=== PATIENT | female | born 1995 | race Two or more races ===

== ENCOUNTER 2023-03-29 16:28 | Emergency (ER) | payer SELFPAY ==
[2023-03-29 16:48] VITALS: BP 113/74; PULSE 137; RESP 14; TEMP 37.1; O2SAT 96; BMI 36.6
[2023-03-29 17:21] LABS: Basophils % 0.1 %; Hematocrit 50.2 % (37.0-47.0); Lymphocytes # 2.4 10^3/uL (0.8-4.8); Mean Corpuscular HGB Conc 33.9 g/dL (30.0-36.0); Mean Corpuscular Volume 85.5 fl (81-99); Mean Platelet Volume 10.2 fL (7.4-10.4); Monocytes % 7.5 %; Neutrophils # 10.39 10^3/uL (1.8-7.7); Neutrophils % 74.7 %; Nucleated Red Blood Cells % 0 %; Platelet Count 350 10^3/cmm (130-400); Red Blood Count 5.87 10^6/uL (4.1-5.3); Red Cell Distribution Width 12.5 % (12.1-15.1); White Blood Count 13.9 10^3/uL (4.0-10.0)
[2023-03-29 17:46] LABS: HCG, Serum Qual Negative (Negative)
[2023-03-29 17:51] LABS: Alanine Aminotransferase 15 U/L (0-33); Albumin Level 4.8 g/dL (3.5-5.2); Alkaline Phosphatase 73 U/L (35-105); Anion Gap 22.6 (5-19); Aspartate Amino Transferase 20 U/L (0-32); Blood Urea Nitrogen 11 mg/dL (6-20); Calcium 10.5 mg/dL (8.5-10.5); Carbon Dioxide 18 mmol/L (22-29); Chloride 99 mmol/L (98-107); Globulin 3.5 g/dL (1.3-4.6); Glomerular Filtration Rate 74.6 mL/min (90-130); Glucose 111 mg/dL (65-115); Lipase 25 U/L (13-60); Osmolality Calculated 282 mOsm/kg (285-295); Potassium 3.6 mmol/L (3.5-5.1); Sodium 136 mmol/L (136-145); Total Bilirubin 0.7 mg/dL (0.15-1.2); Total Protein 8.3 g/dL (6.6-8.7)
--- NOTE | 2023-03-29 17:55 | USR_ITS ---
PROCEDURE INFORMATION: Exam: US Abdomen, Limited; Right Upper Quadrant Exam date and time: 03/29/2023 6:13 PM Age: 28 years old Clinical indication: Abdominal pain; Other: Chronic intermittent ruq pain x 4 years; Patient HX: Normal tbili = 0.7, normal ast = 20, normal alt = 15, normal alkphos = 73, normal lipase = 25, negative hcg TECHNIQUE: Imaging protocol: Real time ultrasound of the abdomen with image documentation. Limited exam focused on the right upper quadrant. COMPARISON: No relevant prior studies available. FINDINGS: Liver: Unremarkable. Gallbladder: No gallstones. No gallbladder wall thickening or pericholecystic fluid. Negative sonographic Taylor's sign, as per the performing picking tech. Biliary ducts: Normal. No stones. No dilation. Pancreas: Unremarkable as visualized. Right kidney: No mass. No definite stones. No hydronephrosis. US/US gall bladder [id number] IMPRESSION: No acute sonographic findings.
--- NOTE | 2023-03-29 17:56 | W.ED.ABDPA2 ---
HPI - Abdominal Pain General: Chief Complaint: Abdominal Pain Stated Complaint: NVD Time Seen by Provider: 03/29/23 17:48 Source: patient Mode of arrival: ambulatory Limitations: no limitations History of Present Illness: 28-year-old female states over the last 4 years she has had abdominal issues she states she has had chronic pain along with vomiting. She is not no history of any surgeries denies any fever states that she has had an episode over the last 4 days with severe vomiting its been uncontrolled with diffuse abdominal cramping she rates a 5 out of 10. She denies any worsening improving factors not been able to tolerate anything p.o. Associated Symptoms: Reports nausea and vomiting; Denies chills, diarrhea, dysuria and fever(s) Review of Systems Const: Denies: fever(s), chills, body aches or change in appetite ENMT: Denies: throat pain or dental pain Card: Denies: chest pain Resp: Denies: dyspnea GI: Reports: abdominal pain, nausea and vomiting; Denies: diarrhea : Denies: dysuria Musc: Denies: neck pain or back pain Skin/Breast: Denies: rash Neuro: Denies: headache(s) Physical Exam Const: COMMON NORMALS: no acute distress, patient oriented x3 and healthy appearing HENMT: COMMON NORMALS: normocephalic and atraumatic HEAD & SCALP: normocephalic and atraumatic Eye: COMMON NORMALS: Equal, round and reactive pupils present and EOMs intact bilaterally PUPIL: Yes Equal, round and reactive pupils present Neck/C-Spine: COMMON NORMALS: full ROM and supple Chest: COMMONS NORMALS: normal inspection of the chest and normal palpation of entire chest wall Resp: COMMON NORMALS: normal respiratory effort, No retractions, No use of accessory muscles and clear to auscultation bilaterally AUSCULTATION: clear to auscultation bilaterally Cardio: COMMON NORMALS: regular rate, regular rhythm and No murmurs present (Cardio) RATE: regular rate RHYTHM: regular rhythm GI: COMMON NORMALS: Normal to inspection, nondistended, normoactive bowel sounds present, Soft to palpation, non-tender and no masses PALPATION: Yes Soft to palpation Extremity: COMMON NORMALS: normal to inspection and full ROM Neuro: COMMON NORMALS: patient oriented x3, moves all extremities and no focal motor deficits Psych: COMMON NORMALS: mental status grossly normal, Normal thought process present and cooperative THOUGHT PROCESS: Normal thought process present Skin: COMMON NORMALS: no rashes or lesions noted and no wounds GENERAL SKIN EXAM: no rashes or lesions noted Course Vital Signs: Vital signs: Vital Signs Temperature 98.8 F 03/29/23 16:48 Pulse Rate 81 03/29/23 19:06 Respiratory Rate 14 03/29/23 19:06 Blood Pressure 120/87 03/29/23 19:06 Pulse Oximetry 98 03/29/23 19:06 Oxygen Delivery Me thod Room Air 03/29/23 16:48 MDM - Abdominal Pain Medical Decision Making Patient presents here with abdominal pain along with vomiting has been chronic in nature blood work ultrasound here are normal she feels much improved after Reglan states Zofran works best for home and she did recently ran out we will prescribe her Zofran we will get her follow-up with surgery she is return if worsening. Medical Records I reviewed the patient's medical records. Lab Data I reviewed the patient's lab results. 03/29/23 16:58 03/29/23 16:58 Labs/Radiology: Radiology Impressions Gallbladder Ultrasound 03/29/23 17:55 IMPRESSION: No acute sonographic findings. Laboratory Results WBC 13.9 10^3/uL (4.0-10.0) H 03/29/23 16:58 RBC 5.87 10^6/uL (4.1-5.3) H 03/29/23 16:58 Hgb 17.0 g/dL (11.5-15.3) H 03/29/23 16:58 Hct 50.2 % (37.0-47.0) H 03/29/23 16:58 MCV 85.5 fl (81-99) 03/29/23 16:58 MCH 29.0 pg (28.0-34.0) 03/29/23 16:58 MCHC 33.9 g/dL (30.0-36.0) 03/29/23 16:58 RDW 12.5 % (12.1-15.1) 03/29/23 16:58 Plt Count 350 10^3/cmm (130-400) 03/29/23 16:58 MPV 10.2 fL (7.4-10.4) 03/29/23 16:58 Neut % (Auto) 74.7 % 03/29/23 16:58 Lymph % (Auto) 17.0 % 03/29/23 16:58 [place] % (Auto) 7.5 % 03/29/23 16:58 Eos % (Auto) 0.0 % 03/29/23 16:58 Baso % (Auto) 0.1 % 03/29/23 16:58 Neut # (Auto) 10.39 10^3/uL (1.8-7.7) H 03/29/23 16:58 Lymph # (Auto) 2.4 10^3/uL (0.8-4.8) 03/29/23 16:58 [place] # (Auto) 1.0 10^3/uL (0.2-0.9) H 03/29/23 16:58 Eos # (Auto) 0.0 10^3/uL (0.0-0.8) 03/29/23 16:58 Baso # (Auto) 0.0 10^3/uL (0.0-0.1) 03/29/23 16:58 Nucleated RBC % (auto) 0 % 03/29/23 16:58 Nucleated RBCs # 0.0 /100WBC 03/29/23 16:58 Sodium 136 mmol/L (136-145) 03/29/23 16:58 Potassium 3.6 mmol/L (3.5-5.1) 03/29/23 16:58 Chloride 99 mmol/L (98-107) 03/29/23 16:58 Carbon Dioxide 18 mmol/L (22-29) L 03/29/23 16:58 Anion Gap 22.6 (5-19) H 03/29/23 16:58 BUN 11 mg/dL (6-20) 03/29/23 16:58 Creatinine 0.9 mg/dL (0.5-0.9) 03/29/23 16:58 GFR Calculation 74.6 mL/min (90-130) L 03/29/23 16:58 Glucose 111 mg/dL (65-115) 03/29/23 16:58 Calculated Osmolality 282 mOsm/kg (285-295) L 03/29/23 16:58 Calcium 10.5 mg/dL (8.5-10.5) 03/29/23 16:58 Total Bilirubin 0.7 mg/dL (0.15-1.2) 03/29/23 16:58 AST 20 U/L (0-32) 03/29/23 16:58 ALT 15 U/L (0-33) 03/29/23 16:58 Alkaline Phosphatase 73 U/L (35-105) 03/29/23 16:58 Total Protein 8.3 g/dL (6.6-8.7) 03/29/23 16:58 Albumin 4.8 g/dL (3.5-5.2) 03/29/23 16:58 Globulin 3.5 g/dL (1.3-4.6) 03/29/23 16:58 Lipase 25 U/L (13-60) 03/29/23 16:58 HCG, Qual Negative (Negative) 03/29/23 16:58 Discharge Plan Discharge Patient Disposition: Home Clinical Impression: Abdominal pain, Vomiting Condition: Stable Prescriptions: New ondansetron 4 mg tablet,disintegrating 4 mg PO Q6H PRN (Reason: nausea and vomiting) Qty: 14 0RF Discharge Orders: Discharge ED (Routine); Ordered 03/29/23 Ordered By: Paras Powell Referrals: Lm Carlos MD [Physician] - 1-3 days Discharge Diet: Advance as tolerated Discharge Activity: Resume usual activity Patient Instructions: Acute Nausea and Vomiting (ED), Abdominal Pain (ED) Coding Level of Care Code ED Pipe Smoking Machine Operator for Marissa Singleton
[2023-03-29 17:59] VITALS: RESP 20; O2SAT 99
[2023-03-29] MEDS: sodium chloride 0.9% 1,000 ML 999 ML IV (17:59)
[2023-03-29] MEDS: diphenhydrAMINE 50 mg/mL SDV 1mL IVP (17:59)
[2023-03-29] MEDS: morphine 4 mg/mL SDV 1 mL IVP (17:59)
[2023-03-29] MEDS: metoclopramide 5 mg/mL SDV 2 mL 10 MG IVP (17:59)
[2023-03-29 18:09] VITALS: BP 139/107; PULSE 58; RESP 20; O2SAT 99
[2023-03-29 19:06] VITALS: BP 120/87; PULSE 81; RESP 14; O2SAT 98
--- NOTE | 2023-03-30 08:42 | DCPLANNER ---
Addendum entered by Lauren Benton 04/13/23 10:49: manager department received the following message from the general surgery clinic regarding follow up appointment: Unable to reach pt. Called multiple time and no returned call. Mailed pt a letter and an FA form 04/13/23. On 04/12/23 @ 11:10 Yao Cerna Wrote To General Surgery Front Off Called patient left a vm 04/12/23. On 04/08/23 @ 10:48 Yao Cerna Wrote To General Surgery Front Off called patient left a vm 04/08/23 Addendum entered by Lauren Benton 04/06/23 09:26: manager department received the following message from the general surgery clinic regarding follow up appointment: no answer 04/04 Original Note: manager department had message to schedule a follow up appointment for patient with general surgery. manager department sent patients information to the front office staff at general surgery. Patients information will be printed and reviewed. Clinic will call patient with appointment information.
== END 2023-03-29 19:07 | disposition home or self-care (01) ==
PROVIDERS: Physician Assistant; Emergency Provider Emergency Medicine
DX: R11.11 Vomiting without nausea (principal); R10.9 Unspecified abdominal pain
CPT/HCPCS: 36415; 76705; 80053; 83690; 84703; 85025; 96361; 96374; 96375; 99284; J1200; J2270; J2765; J7030

== ENCOUNTER 2023-04-24 11:36 | Emergency (ER) | payer SELFPAY ==
[2023-04-24 11:42] VITALS: BP 110/74; PULSE 116; RESP 17; TEMP 36.5; O2SAT 98; BMI 36.6
--- NOTE | 2023-04-24 12:01 | ED_ITS ---
HPI - Nausea/Vomiting/Diarrhea General: Chief complaint: Nausea/Vomiting/Diarrhea Stated complaint: n/v ,chills Time Seen by Provider: 04/24/23 11:53 Source: patient Mode of arrival: ambulatory History of Present Illness: 28-year-old female who presents emergency room with persistent nausea vomiting abdominal pain and cramping she has had this several times in the past as well last time she was here gallbladder ultrasound was negative no previous abdominal surgeries. No dysuria urgency or frequency she has had kidney stones in the past she has had some mild dysuria recently but no hematuria. No fever sweats or chills. No diarrhea in fact she states she has been constipated last few days most of the vomiting has been bilious in nature she denies any coffee- ground emesis or hematemesis. MD elicited complaint: nausea and vomiting Onset (ago): day(s) Description of vomiting: watery and bilious Associated nausea: Yes Associated abdominal pain: Yes Location of pain: Diffuse Quality: cramping Exacerbating factors: none Relieving factors: none Associated symtoms: Reports bloating, anorexia and nausea; Denies anxiety, change in vision, chest pain, cough, diaphoresis, decreased urine output, dizziness, dysuria, epistaxis, fatigue, fecal incontinence, fevers/chills, headache(s), malaise, myalgias, numbness, palpitations, rash, short of breath, syncope, tenesmus, tinnitus or weakness Review of Systems Const: Denies: fever(s), chills, fatigue, malaise or diaphoresis Eyes: Denies: change in vision ENMT: Denies: tinnitus or epistaxis Card: Denies: chest pain, palpitations or syncope Resp: Denies: dyspnea, productive cough or non-productive cough GI: Reports: abdominal pain, nausea, vomiting, constipation and bloating; Denies: hematemesis, coffee ground emesis or fecal incontinence : Denies: dysuria Skin/Breast: Denies: rash or pruritus Neuro: Denies: headache(s) or dizziness Psych: Denies: anxiety [facility] ED Female Reproductive History: Date of last menstrual period: 03/18/23 Physical Exam Const: GENERAL APPEARANCE: cooperative and comfortable ORIENTATION/CONSCIOUSNESS: Yes awake, Yes oriented to person, Yes oriented to place and Yes oriented to time HENMT: COMMON NORMALS: normocephalic, atraumatic and hearing grossly normal bilaterally HEAD & SCALP: normocephalic and atraumatic Resp: COMMON NORMALS: normal respiratory effort, No retractions, No use of accessory muscles and clear to auscultation bilaterally AUSCULTATION: clear to auscultation bilaterally Cardio: COMMON NORMALS: regular rate, regular rhythm and No murmurs present (Cardio) RATE: regular rate RHYTHM: regular rhythm GI: COMMON NORMALS: Soft to palpation and No hepatosplenomegaly present AUSCULTATION: Yes normoactive bowel sounds PALPATION: Yes Soft to palpation, No Tenderness to palpation present (GI), No Guarding due to palpation present (GI) and Yes No hepatosplenomegaly present Extremity: COMMON NORMALS: normal to inspection, capillary refill normal, no clubbing, cyanosis or edema, no calf tenderness and no pedal edema Neuro: SENSORIUM/ORIENTATION: Yes oriented to person, Yes oriented to place and Yes oriented to time Skin: COMMON NORMALS: no rashes or lesions noted GENERAL SKIN EXAM: no rashes or lesions noted Course Vital Signs: Vital signs: Vital Signs Temperature 97.7 F 04/24/23 11:42 Pulse Rate 76 04/24/23 14:12 Respiratory Rate 16 04/24/23 14:12 Blood Pressure 110/74 04/24/23 14:12 Pulse Oximetry 98 04/24/23 14:12 Oxygen Delivery Me thod Room Air 04/24/23 11:42 MDM - Nausea/Vomiting/Diarrhea Medical Decision Making After fluid Haldol and Ativan patient's symptoms have resolved. Discussion with the patient about cannabinoid hyperemesis syndrome. Suspect this is driven largely by the use of marijuana and discussed ways she can avert some of the problems including using less potent products using it with less frequency or preferably abstaining completely. Gave olanzapine and Ativan to use as needed. Clear liquid diet for the next 24 hours and advance as tolerated return if has any worsening changes symptoms Medical Records I reviewed the patient's medical records. Lab Data I reviewed the patient's lab results. 04/24/23 12:00 04/24/23 12:00 Laboratory Results WBC 5.80 10^3/uL (3.29-11.43) 04/24/23 12:00 RBC 5.61 10^6/uL (3.85-5.65) 04/24/23 12:00 Hgb 16.30 g/dL (11.27-16.99) 04/24/23 12:00 Hct 46.3 % (36-47) 04/24/23 12:00 MCV 82.5 fl (85-98) L 04/24/23 12:00 MCH 29.1 pg (27-33) 04/24/23 12:00 MCHC 35.2 g/dL (30-55) 04/24/23 12:00 RDW 12.6 % (12.1-15.1) 04/24/23 12:00 Plt Count 264 10^3/cmm (157-399) 04/24/23 12:00 MPV 10.2 fL (7.4-10.4) 04/24/23 12:00 Neut % (Auto) 63.1 % 04/24/23 12:00 Lymph % (Auto) 23.6 % 04/24/23 12:00 [place] % (Auto) 13.1 % 04/24/23 12:00 Eos % (Auto) 0.0 % 04/24/23 12:00 Baso % (Auto) 0.0 % 04/24/23 12:00 Neut # (Auto) 3.66 10^3/uL (1.8-7.7) 04/24/23 12:00 Lymph # (Auto) 1.4 10^3/uL (0.8-4.8) 04/24/23 12:00 [place] # (Auto) 0.8 10^3/uL (0.2-0.9) 04/24/23 12:00 Eos # (Auto) 0.0 10^3/uL (0.0-0.8) 04/24/23 12:00 Baso # (Auto) 0.0 10^3/uL (0.0-0.1) 04/24/23 12:00 Nucleated RBC % (auto) 0 % 04/24/23 12:00 Nucleated RBCs # 0.0 /100WBC 04/24/23 12:00 Sodium 137 mmol/L (136-145) 04/24/23 12:00 Potassium 3.3 mmol/L (3.5-5.1) L 04/24/23 12:00 Chloride 100 mmol/L (98-107) 04/24/23 12:00 Carbon Dioxide 20 mmol/L (22-29) L 04/24/23 12:00 Anion Gap 20.3 (5-19) H 04/24/23 12:00 BUN 13 mg/dL (6-20) 04/24/23 12:00 Creatinine 0.6 mg/dL (0.5-0.9) 04/24/23 12:00 GFR Calculation 119.0 mL/min (90-130) 04/24/23 12:00 Glucose 107 mg/dL (65-115) 04/24/23 12:00 Calculated Osmolality 285 mOsm/kg (285-295) 04/24/23 12:00 Calcium 9.8 mg/dL (8.5-10.5) 04/24/23 12:00 Total Bilirubin 0.3 mg/dL (0.15-1.2) 04/24/23 12:00 AST 39 U/L (0-32) H 04/24/23 12:00 ALT 29 U/L (0-33) 04/24/23 12:00 Alkaline Phosphatase 55 U/L (35-105) 04/24/23 12:00 Total Protein 7.9 g/dL (6.6-8.7) 04/24/23 12:00 Albumin 4.8 g/dL (3.5-5.2) 04/24/23 12:00 Globulin 3.1 g/dL (1.3-4.6) 04/24/23 12:00 Lipase 38 U/L (13-60) 04/24/23 12:00 HCG, Qual Negative (Negative) 04/24/23 13:23 Urine Color Straw (Yellow) 04/24/23 14:10 Urine Appearance Clear (CLEAR) 04/24/23 14:10 Urine pH 5 (5-7) 04/24/23 14:10 Ur Specific [place] 1.005 (1.005-1.030) 04/24/23 14:10 Urine Protein 1+ (Negative) H 04/24/23 14:10 Urine Glucose (UA) Norm (Normal) 04/24/23 14:10 Urine Ketones 1+ (Negative) H 04/24/23 14:10 Urine Blood Neg (Negative) 04/24/23 14:10 Urine Nitrate Negative (Negative) 04/24/23 14:10 Urine Bilirubin Neg (Negative) 04/24/23 14:10 Urine Urobilinogen Norm mg/dL (Negative) 04/24/23 14:10 Ur Leukocyte Esterase Negative (Negative) 04/24/23 14:10 Urine RBC None /hpf (0-2) 04/24/23 14:10 Urine WBC 0-4 /hpf (0-5) H 04/24/23 14:10 Ur Squamous Epith Cells 5-10 /hpf (0-5) H 04/24/23 14:10 Amorphous Sediment Not Reportable 04/24/23 14:10 Urine Bacteria Trace /hpf (NONE) 04/24/23 14:10 Discharge Plan Discharge Patient Disposition: Home Clinical Impression: Cannabinoid hyperemesis syndrome Condition: Stable Prescriptions: New olanzapine 10 mg tablet,disintegrating 10 mg PO Q6H PRN (Reason: nausea and vomitting) Qty: 15 0RF Ativan 2 mg tablet 2 mg buccal Q6H PRN (Reason: nausea and vomiting) Qty: 15 0RF Discontinued ondansetron 4 mg tablet,disintegrating 4 mg PO Q6H PRN (Reason: nausea and vomiting) Qty: 14 0RF Discharge Orders: Discharge ED (Routine); Ordered 04/24/23 Ordered By: Denver Salas Discharge Diet: Clear Liquid Discharge Activity: Increase activity as tolerated Patient Instructions: Opioid Safety, Pain Management Coding Level of Care Code ED Tattoo Identifier for Marissa Singleton
[2023-04-24 12:09] LABS: Hematocrit 46.3 % (36-47); Lymphocytes # 1.4 10^3/uL (0.8-4.8); Lymphocytes % 23.6 %; Mean Corpuscular HGB Conc 35.2 g/dL (30-55); Mean Corpuscular Hemoglobin 29.1 pg (27-33); Mean Corpuscular Volume 82.5 fl (85-98); Mean Platelet Volume 10.2 fL (7.4-10.4); Monocytes # 0.8 10^3/uL (0.2-0.9); Monocytes % 13.1 %; Neutrophils # 3.66 10^3/uL (1.8-7.7); Neutrophils % 63.1 %; Nucleated Red Blood Cells % 0 %; Platelet Count 264 10^3/cmm (157-399); Red Blood Count 5.61 10^6/uL (3.85-5.65); Red Cell Distribution Width 12.6 % (12.1-15.1)
[2023-04-24] MEDS: ondansetron 2 mg/ML SDV 2 mL 4 MG IVP (12:11)
[2023-04-24] MEDS: lactated ringers 1,000 ML 999 ML IV (12:11)
[2023-04-24] MEDS: LORazepam 2 mg/mL INJ 1 mL IVP (12:21)
[2023-04-24] MEDS: haloperidol inj 5 mg/mL INJ 1 mL 2.5 MG IVP (12:21)
[2023-04-24 12:40] LABS: Alanine Aminotransferase 29 U/L (0-33); Albumin Level 4.8 g/dL (3.5-5.2); Alkaline Phosphatase 55 U/L (35-105); Anion Gap 20.3 (5-19); Aspartate Amino Transferase 39 U/L (0-32); Blood Urea Nitrogen 13 mg/dL (6-20); Calcium 9.8 mg/dL (8.5-10.5); Carbon Dioxide 20 mmol/L (22-29); Chloride 100 mmol/L (98-107); Globulin 3.1 g/dL (1.3-4.6); Glucose 107 mg/dL (65-115); Lipase 38 U/L (13-60); Osmolality Calculated 285 mOsm/kg (285-295); Potassium 3.3 mmol/L (3.5-5.1); Sodium 137 mmol/L (136-145); Total Bilirubin 0.3 mg/dL (0.15-1.2); Total Protein 7.9 g/dL (6.6-8.7)
[2023-04-24 13:57] LABS: HCG, Serum Qual Negative (Negative)
[2023-04-24 14:12] VITALS: BP 110/74; PULSE 76; RESP 16; O2SAT 98
[2023-04-24 14:34] LABS: Specific Gravity, Urine 1.005 (1.005-1.030); Urine Appearance Clear (CLEAR); Urine Color Straw (Yellow); pH Urine 5 (5-7)
[2023-04-24 14:35] LABS: Add Urine Culture? No; Add Urine Microscopic? YES; Bacteria Urine TRACE /hpf; Bilirubin Urine Neg (Negative); Blood Urine Neg (Negative); Glucose Urine UA Norm (Normal); Ketones Urine 1+ (Negative); Leukocyte Esterase Urine Negative (Negative); Nitrate Urine Negative (Negative); Protein Urine 1+ (Negative); Urobilinogen Urine Norm (Negative); WBC Urine 0-4 /hpf (0-5)
== END 2023-04-24 15:18 | disposition home or self-care (01) ==
PROVIDERS: Emergency Provider Family Medicine
DX: R11.2 Nausea with vomiting, unspecified (principal); F12.90 Cannabis use, unspecified, uncomplicated
CPT/HCPCS: 36415; 80053; 81001; 83690; 84703; 85025; 96361; 96374; 96375; 99284; J1630; J2060; J2405; J7120

== ENCOUNTER 2023-04-27 16:50 | Emergency (ER) | payer SELFPAY ==
[2023-04-27 16:53] VITALS: BP 129/89; PULSE 70; RESP 20; TEMP 36.8; O2SAT 98; BMI 33.3
[2023-04-27] MEDS: sodium chloride 0.9% 1,000 ML 999 ML IV (17:32)
[2023-04-27] MEDS: ondansetron 2 mg/ML SDV 2 mL 4 MG IVP (17:32)
[2023-04-27 17:43] LABS: Eosinophils % 0.2 %; Hematocrit 44.8 % (36-47); Mean Corpuscular HGB Conc 33.9 g/dL (30-55); Mean Corpuscular Hemoglobin 28.7 pg (27-33); Mean Corpuscular Volume 84.5 fl (85-98); Mean Platelet Volume 10.2 fL (7.4-10.4); Monocytes # 0.6 10^3/uL (0.2-0.9); Monocytes % 11.8 %; Neutrophils # 2.44 10^3/uL (1.8-7.7); Neutrophils % 47.8 %; Nucleated Red Blood Cells % 0 %; Platelet Count 258 10^3/cmm (157-399); Red Cell Distribution Width 12.1 % (12.1-15.1)
--- NOTE | 2023-04-27 17:47 | W.ED.NAVMDI ---
HPI - Nausea/Vomiting/Diarrhea General: Chief complaint: Nausea/Vomiting/Diarrhea Stated complaint: N/V Time Seen by Provider: 04/27/23 17:06 History of Present Illness: The ER with an episode of abdominal pain and nausea vomiting. Patient states this been going on for 5 or 6 days. Patient says she was in ER about 3 days ago and the medicine they gave her work-up but knocked her out. Patient stated this been going on for several years but usually comes in waves here and there. Patient states this is exactly the same feeling as it always is there is nothing new or different about this time versus any other time. Review of Systems General: Reports: 10 or more systems reviewed and unremarkable except in HPI and below Physical Exam Const: COMMON NORMALS: no acute distress, average body habitus, patient oriented x3, no limitations, healthy appearing, alert and well nourished HENMT: COMMON NORMALS: normocephalic, atraumatic, hearing grossly normal bilaterally, external ears normal, Normal external nose present and moist oral mucous membranes HEAD & SCALP: normocephalic and atraumatic NOSE: Normal external nose present EXTERNAL EAR: Yes external ears normal Eye: COMMON NORMALS: Equal, round and reactive pupils present, EOMs intact bilaterally, conjunctivae normal and no scleral icterus CONJUNCTIVA: Yes conjunctivae normal PUPIL: Yes Equal, round and reactive pupils present Neck/C-Spine: COMMON NORMALS: full ROM, no lymphadenopathy, supple, no meningeal signs, no JVD and Thyroid normal THYROID: Thyroid normal Lymph: LYMPHATIC: no lymphadenopathy noted Chest: COMMONS NORMALS: normal inspection of the chest and normal palpation of entire chest wall Resp: COMMON NORMALS: normal respiratory effort, No retractions, No use of accessory muscles and clear to auscultation bilaterally AUSCULTATION: clear to auscultation bilaterally Cardio: COMMON NORMALS: no JVD, regular rate, regular rhythm, S1 normal heart sound present, S2 normal heart sound present, No gallops present (Cardio), No clicks present (Cardio), No murmurs present (Cardio) and No rub (Cardio) RATE: regular rate RHYTHM: regular rhythm HEART SOUNDS: S1 normal heart sound present and S2 normal heart sound present GI: COMMON NORMALS: Normal to inspection, nondistended, normoactive bowel sounds present, Soft to palpation, No hepatosplenomegaly present and no masses; negative for non-tender (Tenderness with palpation of the epigastric area.) PALPATION: Yes Soft to palpation and Yes No hepatosplenomegaly present Neuro: COMMON NORMALS: patient oriented x3 SENSORIUM/ORIENTATION: Yes alert MENINGEAL SIGNS: Yes no meningeal signs Course Vital Signs: Vital signs: Vital Signs Temperature 98.3 F 04/27/23 16:53 Pulse Rate 70 04/27/23 16:53 Respiratory Rate 20 H 04/27/23 16:53 Blood Pressure 129/89 04/27/23 16:53 Pulse Oximetry 98 04/27/23 16:53 Oxygen Delivery Me thod Room Air 04/27/23 16:53 MDM - Nausea/Vomiting/Diarrhea Medical Decision Making Presents to the ER with nausea vomiting abdominal pain. Patient was given 2.5 mg of Haldol 1 mg Ativan IV along with 1 L normal saline fluid bolus. This relieved the patient's nausea vomiting abdominal pain. Patient stated she is ready go home. Will be discharged home to follow-up with her PCP in 7 days or sooner as needed. Differential Diagnosis Unlikely traveler's diarrhea, food poisoning, gastroenteritis, clostridium difficile infection, drug-induced nausea and vomiting or dehydration Medical Records I reviewed the patient's medical records. Lab Data I reviewed the patient's lab results. 04/27/23 17:16 04/27/23 17:16 Laboratory Results WBC 5.10 10^3/uL (3.29-11.43) 04/27/23 17:16 RBC 5.30 10^6/uL (3.85-5.65) 04/27/23 17:16 Hgb 15.20 g/dL (11.27-16.99) 04/27/23 17:16 Hct 44.8 % (36-47) 04/27/23 17:16 MCV 84.5 fl (85-98) L 04/27/23 17:16 MCH 28.7 pg (27-33) 04/27/23 17:16 MCHC 33.9 g/dL (30-55) 04/27/23 17:16 RDW 12.1 % (12.1-15.1) 04/27/23 17:16 Plt Count 258 10^3/cmm (157-399) 04/27/23 17:16 MPV 10.2 fL (7.4-10.4) 04/27/23 17:16 Neut % (Auto) 47.8 % 04/27/23 17:16 Lymph % (Auto) 40.0 % 04/27/23 17:16 [place] % (Auto) 11.8 % 04/27/23 17:16 Eos % (Auto) 0.2 % 04/27/23 17:16 Baso % (Auto) 0.0 % 04/27/23 17:16 Neut # (Auto) 2.44 10^3/uL (1.8-7.7) 04/27/23 17:16 Lymph # (Auto) 2.0 10^3/uL (0.8-4.8) 04/27/23 17:16 [place] # (Auto) 0.6 10^3/uL (0.2-0.9) 04/27/23 17:16 Eos # (Auto) 0.0 10^3/uL (0.0-0.8) 04/27/23 17:16 Baso # (Auto) 0.0 10^3/uL (0.0-0.1) 04/27/23 17:16 Nucleated RBC % (auto) 0 % 04/27/23 17:16 Nucleated RBCs # 0.0 /100WBC 04/27/23 17:16 Sodium 137 mmol/L (136-145) 04/27/23 17:16 Potassium 3.1 mmol/L (3.5-5.1) L 04/27/23 17:16 Chloride 100 mmol/L (98-107) 04/27/23 17:16 Carbon Dioxide 24 mmol/L (22-29) 04/27/23 17:16 Anion Gap 16.1 (5-19) 04/27/23 17:16 BUN 8 mg/dL (6-20) 04/27/23 17:16 Creatinine 0.5 mg/dL (0.5-0.9) 04/27/23 17:16 GFR Calculation 146.9 mL/min (90-130) H 04/27/23 17:16 Glucose 111 mg/dL (65-115) 04/27/23 17:16 Calculated Osmolality 283 mOsm/kg (285-295) L 04/27/23 17:16 Calcium 9.1 mg/dL (8.5-10.5) 04/27/23 17:16 Magnesium 2.1 mg/dL (1.7-2.3) 04/27/23 17:16 Total Bilirubin 0.8 mg/dL (0.15-1.2) 04/27/23 17:16 AST 28 U/L (0-32) 04/27/23 17:16 ALT 30 U/L (0-33) 04/27/23 17:16 Alkaline Phosphatase 45 U/L (35-105) 04/27/23 17:16 Total Protein 7.2 g/dL (6.6-8.7) 04/27/23 17:16 Albumin 4.4 g/dL (3.5-5.2) 04/27/23 17:16 Globulin 2.8 g/dL (1.3-4.6) 04/27/23 17:16 Lipase 35 U/L (13-60) 04/27/23 17:16 Urine Color Yellow (Yellow) 04/27/23 18:34 Urine Appearance Clear (CLEAR) 04/27/23 18:34 Urine pH 8 (5-7) H 04/27/23 18:34 Ur Specific [place] 1.005 (1.005-1.030) 04/27/23 18:34 Urine Protein Neg (Negative) 04/27/23 18:34 Urine Glucose (UA) Norm (Normal) 04/27/23 18:34 Urine Ketones 2+ (Negative) H 04/27/23 18:34 Urine Blood 3+ (Negative) H 04/27/23 18:34 Urine Nitrate Negative (Negative) 04/27/23 18:34 Urine Bilirubin Neg (Negative) 04/27/23 18:34 Prot Sulfosalicylic Acd Negative (Negative) 04/27/23 18:34 Urine Urobilinogen 1 mg/dL (Negative) H 04/27/23 18:34 Ur Leukocyte Esterase Negative (Negative) 04/27/23 18:34 Urine RBC 0-4 /hpf (0-2) H 04/27/23 18:34 Urine WBC 0-4 /hpf (0-5) H 04/27/23 18:34 Ur Squamous Epith Cells 0-4 /hpf (0-5) H 04/27/23 18:34 Amorphous Sediment Not Reportable 04/27/23 18:34 Urine Bacteria Trace /hpf (NONE) 04/27/23 18:34 Urine Opiates Screen Negative ng/mL (Negative) 04/27/23 18:34 Ur Barbiturates Screen Negative ng/mL (Negative) 04/27/23 18:34 Ur Phencyclidine Scrn Negative ng/mL (Negative) 04/27/23 18:34 Ur Amphetamines Screen Negative ng/mL (Negative) 04/27/23 18:34 U Benzodiazepines Scrn Positive ng/mL (Negative) H 04/27/23 18:34 Urine Cocaine Screen Negative ng/mL (Negative) 04/27/23 18:34 U Marijuana (THC) Screen Positive ng/mL (Negative) H 04/27/23 18:34 Discharge Plan Discharge Patient Disposition: Home Clinical Impression: Cannabinoid hyperemesis syndrome, Acute hypokalemia Condition: Stable Prescriptions: New potassium chloride 10 mEq tablet extended release 10 meq PO DAILY Qty: 7 0RF No Action olanzapine 10 mg tablet,disintegrating 10 mg PO Q6H PRN (Reason: nausea and vomitting) Qty: 15 0RF Ativan 2 mg tablet 2 mg buccal Q6H PRN (Reason: nausea and vomiting) Qty: 15 0RF Discharge Orders: Discharge ED (Routine); Ordered 04/27/23 Ordered By: Trell Sanderson Patient Instructions: Hypokalemia (ED), Acute Nausea and Vomiting (ED) Activity Restrictions/Additional Instructions: Please follow-up with your family practice physician in the next 7 days or sooner as needed for further evaluation and treatment. Coding Level of Care Code ED Vault Service Mechanic for Marissa Singleton
[2023-04-27 18:03] LABS: Alanine Aminotransferase 30 U/L (0-33); Albumin Level 4.4 g/dL (3.5-5.2); Alkaline Phosphatase 45 U/L (35-105); Anion Gap 16.1 (5-19); Aspartate Amino Transferase 28 U/L (0-32); Blood Urea Nitrogen 8 mg/dL (6-20); Calcium 9.1 mg/dL (8.5-10.5); Carbon Dioxide 24 mmol/L (22-29); Chloride 100 mmol/L (98-107); Globulin 2.8 g/dL (1.3-4.6); Glomerular Filtration Rate 146.9 mL/min (90-130); Glucose 111 mg/dL (65-115); Lipase 35 U/L (13-60); Magnesium 2.1 mg/dL (1.7-2.3); Osmolality Calculated 283 mOsm/kg (285-295); Potassium 3.1 mmol/L (3.5-5.1); Sodium 137 mmol/L (136-145); Total Bilirubin 0.8 mg/dL (0.15-1.2); Total Protein 7.2 g/dL (6.6-8.7)
[2023-04-27] MEDS: potassium chloride ER 20 mEq Tablet 40 MEQ PO (18:25)
[2023-04-27] MEDS: haloperidol inj 5 mg/mL INJ 1 mL 2.5 MG IVP (18:26)
[2023-04-27] MEDS: LORazepam 2 mg/mL INJ 1 mL 1 MG IVP (18:27)
[2023-04-27 18:50] LABS: Add Urine Microscopic? YES; Bilirubin Urine Neg (Negative); Blood Urine 3+ (Negative); Glucose Urine UA Norm (Normal); Ketones Urine 2+ (Negative); Leukocyte Esterase Urine Negative (Negative); Nitrate Urine Negative (Negative); Protein Urine Neg (Negative); Specific Gravity, Urine 1.005 (1.005-1.030); Sulfosalicylic Acid Urine Negative (Negative); Urine Appearance Clear (CLEAR); Urine Color Yellow (Yellow); Urobilinogen Urine 1 mg/dL (Negative); pH Urine 8 (5-7)
[2023-04-27 18:52] LABS: Add Urine Culture? No; Bacteria Urine TRACE /hpf; RBC Urine 0-4 /hpf (0-2); Squamous Epithelial Cell Urine 0-4 /hpf (0-5); WBC Urine 0-4 /hpf (0-5)
[2023-04-27 18:54] LABS: Amphetamines Screen Urine Negative (Negative); Barbiturates Screen Urine Negative (Negative); Benzodiazepines Screen Urine Positive (Negative); Cocaine Screen Urine Negative (Negative); Opiate Screen Urine Negative (Negative); PCP Screen Urine Negative (Negative); THC Screen Urine Positive (Negative)
--- NOTE | 2023-04-28 09:49 | DCPLANNER ---
nursery manager had message to speak with patient about getting established with a primary care physician. nursery manager called patient, unable to speak with patient at this time.
== END 2023-04-27 19:48 | disposition home or self-care (01) ==
PROVIDERS: Emergency Provider Emergency Medicine
DX: R11.2 Nausea with vomiting, unspecified (principal); F12.90 Cannabis use, unspecified, uncomplicated; E87.6 Hypokalemia
CPT/HCPCS: 80053; 80306; 81001; 83690; 83735; 85025; 96374; 96375; 99284; J1630; J2060; J2405; J7030

== ENCOUNTER 2023-09-24 08:23 | Emergency (ER) | payer SELFPAY ==
[2023-09-24 08:32] VITALS: BP 149/112; PULSE 149; RESP 19; TEMP 36.9; O2SAT 98; BMI 29.9
[2023-09-24 08:37] VITALS: BP 149/112; PULSE 149; RESP 19; TEMP 36.9; O2SAT 98
[2023-09-24 09:20] LABS: Basophils % 0.1 %; Hematocrit 47.5 % (36-47); Lymphocytes # 2.1 10^3/uL (0.8-4.8); Lymphocytes % 13.5 %; Mean Corpuscular HGB Conc 33.9 g/dL (30-55); Mean Corpuscular Hemoglobin 28.3 pg (27-33); Mean Corpuscular Volume 83.6 fl (85-98); Mean Platelet Volume 11.6 fL (7.4-10.4); Monocytes # 1.3 10^3/uL (0.2-0.9); Neutrophils # 12.33 10^3/uL (1.8-7.7); Nucleated Red Blood Cells % 0 %; Platelet Count 344 10^3/cmm (157-399); Red Blood Count 5.68 10^6/uL (3.85-5.65); Red Cell Distribution Width 13.2 % (12.1-15.1)
[2023-09-24] MEDS: haloperidol inj 5 mg/mL INJ 1 mL IVP (09:50)
[2023-09-24 10:07] VITALS: PULSE 67; RESP 16; O2SAT 97
[2023-09-24 10:13] LABS: Alanine Aminotransferase 27 U/L (0-33); Albumin Level 4.8 g/dL (3.5-5.2); Alkaline Phosphatase 65 U/L (35-105); Aspartate Amino Transferase 33 U/L (0-32); Blood Urea Nitrogen 13 mg/dL (6-20); Calcium 10.8 mg/dL (8.5-10.5); Carbon Dioxide 17 mmol/L (22-29); Chloride 98 mmol/L (98-107); Globulin 3.7 g/dL (1.3-4.6); Glucose 116 mg/dL (65-115); Lipase 22 U/L (13-60); Osmolality Calculated 281 mOsm/kg (285-295); Sodium 135 mmol/L (136-145); Total Bilirubin 0.7 mg/dL (0.15-1.2); Total Protein 8.5 g/dL (6.6-8.7)
[2023-09-24 10:17] LABS: Anion Gap 23.4 (5-19); Potassium 3.4 mmol/L (3.5-5.1)
--- NOTE | 2023-09-24 10:34 | ED_ITS ---
HPI - Nausea/Vomiting/Diarrhea 2 General: Chief complaint: Nausea/Vomiting/Diarrhea Stated complaint: vomiting, headache Time Seen by Provider: 09/24/23 08:40 History of Present Illness: 28-year-old female presents emergency de partment with complaints of nausea and vomiting that started yesterday. She states she is a heavy cannabis smoker and has had cannabinoid induced hyperemesis syndrome previously. She states that this may be the cause of her cyclical nausea vomiting and states that she has severe abdominal cramping that is a 10 out of 10 that is very similar to the last time she smoked marijuana. Patient states she is also concerned that she ate [employer] food on and is concerned that she might have food poisoning from it because her nausea and vomiting started on Tuesday which is also when she started smoking marijuana again. She states she has attempted to utilize hot showers and hot baths to alleviate her abdominal pain with initial improvement but then relapsed with cyclical nausea and vomiting again Associated nausea: Yes Associated symtoms: Reports nausea Review of Systems 2 General: Reports: 10 or more systems reviewed and unremarkable except in HPI and below GI: Reports: abdominal pain, nausea and vomiting Physical Exam 2 Narrative: EXAM NARRATIVE: Constitutional: the patient appears well nourished and of normal development. Vital signs as documented. No acute distress at present. Alert and oriented-to person, place, time and situation. Head, eyes, ears, nose, mouth, throat: Normocephalic, atraumatic. Pupils-equal, round, reactive to light. No scleral icterus. Normal-appearing external ears. Normal appearing nasal turbinates, no drainage. No obvious oral lesions, posterior oropharynx without erythema or exudates. Neck: Supple, trachea is midline, no lymphadenopathy, no jugular venous distension, thyromegaly, or carotid bruits. Carotid upstrokes are brisk bilaterally. Lungs: clear to auscultation to all lung rocha. Symmetrical rise and fall of chest, no obvious signs of increased work of breathing at present. Cardiac: Regular rate and rhythm, positive S1, S2. No murmurs, rubs or gallops that I can appreciate Abdomen: Soft, non-tender to palpation, normal active bowel sounds to all quadrants. No palpable masses, no organomegaly and abdominal bruits. Extremities: 2+ pulses in the upper extremities that are equal bilaterally, 2+ pulses in the lower extremities that are equal bilaterally. Non-edematous. Moves all extremities well, sensation to all extremities are noted. Skin: Warm, dry, intact. Course 2 Vital Signs: Vital signs: Vital Signs Temperature 98.4 F 09/24/23 08:37 Pulse Rate 67 09/24/23 10:07 Respiratory Rate 16 09/24/23 10:07 Blood Pressure 149/112 09/24/23 08:37 Pulse Oximetry 97 09/24/23 10:07 Oxygen Delivery Me thod Room Air 09/24/23 10:07 MDM - Nausea/Vomiting/Diarrhea Medical Decision Making 28-year-old female presents to the emergency department with complaints of cyclical nausea vomiting abdominal pain after smoking marijuana she has a longstanding history of cannabinoid induced hyperemesis syndrome and I suspect this is most likely again a representation of the side effects of her excessive cannabis use. Medical Records I reviewed the patient's medical records. Lab Data I reviewed the patient's lab results. 09/24/23 08:59 09/24/23 09:36 Laboratory Results WBC 15.80 10^3/uL (3.29-11.43) H 09/24/23 08:59 RBC 5.68 10^6/uL (3.85-5.65) H 09/24/23 08:59 Hgb 16.10 g/dL (11.27-16.99) 09/24/23 08:59 Hct 47.5 % (36-47) H 09/24/23 08:59 MCV 83.6 fl (85-98) L 09/24/23 08:59 MCH 28.3 pg (27-33) 09/24/23 08:59 MCHC 33.9 g/dL (30-55) 09/24/23 08:59 RDW 13.2 % (12.1-15.1) 09/24/23 08:59 Plt Count 344 10^3/cmm (157-399) 09/24/23 08:59 MPV 11.6 fL (7.4-10.4) H 09/24/23 08:59 Neut % (Auto) 78.0 % 09/24/23 08:59 Lymph % (Auto) 13.5 % 09/24/23 08:59 [place] % (Auto) 8.0 % 09/24/23 08:59 Eos % (Auto) 0.0 % 09/24/23 08:59 Baso % (Auto) 0.1 % 09/24/23 08:59 Neut # (Auto) 12.33 10^3/uL (1.8-7.7) H 09/24/23 08:59 Lymph # (Auto) 2.1 10^3/uL (0.8-4.8) 09/24/23 08:59 [place] # (Auto) 1.3 10^3/uL (0.2-0.9) H 09/24/23 08:59 Eos # (Auto) 0.0 10^3/uL (0.0-0.8) 09/24/23 08:59 Baso # (Auto) 0.0 10^3/uL (0.0-0.1) 09/24/23 08:59 Nucleated RBC % (auto) 0 % 09/24/23 08:59 Nucleated RBCs # 0.0 /100WBC 09/24/23 08:59 Sodium 135 mmol/L (136-145) L 09/24/23 09:36 Potassium 3.4 mmol/L (3.5-5.1) L 09/24/23 09:36 Chloride 98 mmol/L (98-107) 09/24/23 09:36 Carbon Dioxide 17 mmol/L (22-29) L 09/24/23 09:36 Anion Gap 23.4 (5-19) H 09/24/23 09:36 BUN 13 mg/dL (6-20) 09/24/23 09:36 Creatinine 0.6 mg/dL (0.5-0.9) 09/24/23 09:36 GFR Calculation 119.0 mL/min (90-130) 09/24/23 09:36 Glucose 116 mg/dL (65-115) H 09/24/23 09:36 Calculated Osmolality 281 mOsm/kg (285-295) L 09/24/23 09:36 Calcium 10.8 mg/dL (8.5-10.5) H 09/24/23 09:36 Total Bilirubin 0.7 mg/dL (0.15-1.2) 09/24/23 09:36 AST 33 U/L (0-32) H 09/24/23 09:36 ALT 27 U/L (0-33) 09/24/23 09:36 Alkaline Phosphatase 65 U/L (35-105) 09/24/23 09:36 Total Protein 8.5 g/dL (6.6-8.7) 09/24/23 09:36 Albumin 4.8 g/dL (3.5-5.2) 09/24/23 09:36 Globulin 3.7 g/dL (1.3-4.6) 09/24/23 09:36 Lipase 22 U/L (13-60) 09/24/23 09:36 No radiology studies performed this visit Discharge Plan Discharge Patient Disposition: Home Clinical Impression: Cannabinoid hyperemesis syndrome, Cyclical vomiting with nausea, Abdominal cramping Condition: Stable Prescriptions: New ondansetron HCl 4 mg tablet 4 mg PO Q12H 5 Days Qty: 10 0RF capsaicin 0.1 % cream 1 applic topical TID Qty: 42.5 0RF Rx Instructions: do not wash area for at least 30 min after application Discharge Orders: Discharge ED (Routine); Ordered 09/24/23 Ordered By: Reilly Murcia Discharge Diet: Advance as tolerated Discharge Activity: Resume usual activity Patient Instructions: Opioid Safety, Pain Management Coding Level of Care Code ED Epitaxial Reactor Operator for Marissa Singleton
== END 2023-09-24 10:59 | disposition home or self-care (01) ==
PROVIDERS: Emergency Provider Internal Medicine
DX: R11.2 Nausea with vomiting, unspecified (principal); F12.90 Cannabis use, unspecified, uncomplicated; R11.15 Cyclical vomiting syndrome unrelated to migraine; R10.9 Unspecified abdominal pain
CPT/HCPCS: 36415; 80053; 83690; 85025; 96374; 99284; J1630